=== PATIENT | female | born 1975 | race Native Hawaiian/Other Pacific Islander ===

== ENCOUNTER 2020-07-16 15:38 | Emergency (ER) | payer BC, SELFPAY ==
[~2020-07-16] VITALS: Ht 175.3 cm; Wt 106.1 kg
[2020-07-16 15:50] VITALS: BP_SYST 187
--- NOTE | 2020-07-16 15:54 | NUR ---
Triaged and placed in waiting area outside
--- NOTE | 2020-07-16 16:21 | NUR ---
Patient to ER bed 8 to gown for evaluation. Side rails up. Report given to Ponce PEARSON.
--- NOTE | 2020-07-16 16:30 | NUR ---
Pt walked in to ER with c/o sore throat, body aches and congestion x 3 days. Pt is currently afebrile. V/S stable. Currenlty resting in bed, will continue to monitor.
--- NOTE | 2020-07-16 16:40 | NUR ---
ER Dr. Silvestre at bedside examining patient.
--- NOTE | 2020-07-16 16:45 | NUR ---
Nasal swabs obtained to r/o covid and influenza. Throat swab obtained to r/o strep. Samples sent to lab as per MD orders. Pt tolerated well.
[2020-07-16 17:03] LABS: STREPTOCOCCUS A SCREEN (RAPID) NEGATIVE (NEGATIVE)
[2020-07-16 17:06] LABS: INFLUENZA A&B ANTIGEN SCREEN NEGATIVE FOR A & B (NEGATIVE)
[2020-07-16 17:31] VITALS: BP_SYST 167
--- NOTE | 2020-07-16 17:31 | NUR ---
Patient given written and verbal discharge instructions and verbalizes understanding. ER MD discussed with patient the results and treatment provided. Patient in stable condition. ID arm band removed. Rx of clonidine given. Patient educated on pain management and to follow up with PMD. Pain Scale 3/10. Opportunity for questions provided and answered. Medication side effect fact sheet provided.
== END 2020-07-16 17:31 | disposition home or self-care (01) ==
LOC: SED 15:38
DX: B34.9 Viral infection, unspecified (principal); I10 Essential (primary) hypertension; Z20.828 Contact with and (suspected) exposure to other viral communicable diseases
CPT/HCPCS: 36415; 86403; 86710; 87081; 99283